=== PATIENT | female | born 1985 | race Caucasian/White ===

== ENCOUNTER 2016-07-19 03:19 | Inpatient (IN) ==
[2016-07-19 03:55] LABS: URINE SOURCE VOIDED
[2016-07-19] MEDS ORDERED: PEPCID PO PRN (03:55)
[2016-07-19] MEDS ORDERED: LR 1,000 ML IV SCH (03:55)
[2016-07-19] MEDS ORDERED: PEPCID IV PRN (03:55)
[2016-07-19] MEDS ORDERED: KEFZOL 1 GM/D5W 1 GM/50 ML IVPB IV PRN (03:55)
[2016-07-19] MEDS ORDERED: ZOFRAN IV PRN (03:55)
[2016-07-19] MEDS ORDERED: AMPICILLIN 2 GM/NS 2 GM/100 ML IVPB IV ONE (03:55)
[2016-07-19] MEDS ORDERED: REGLAN PO ONE (03:55)
[2016-07-19] MEDS ORDERED: LR 500 ML IV ONE (03:55)
[2016-07-19] MEDS ORDERED: TYLENOL PO PRN (03:55)
[2016-07-19] MEDS ORDERED: STADOL IV PRN (03:55)
[2016-07-19] MEDS ORDERED: PITOCIN 30 UNITS/LR 30 UNITS/500 ML IV.SOLN IV SCH (03:55)
[2016-07-19] MEDS ORDERED: PEPCID PO ONE (03:55)
[2016-07-19] MEDS ORDERED: SODIUM CHLORIDE 0.9% INJ SCH (04:00)
[2016-07-19 04:01] LABS: BILIRUBIN URINE NEGATIVE (NEGATIVE); BLOOD URINE 1+ (NEGATIVE); CLARITY CLEAR (CLEAR); COLOR YELLOW; GLUCOSE URINE NEGATIVE (NEGATIVE); LEUKOCYTES URINE 1+ (NEGATIVE); NITRITE URINE NEGATIVE (NEGATIVE); PROTEIN URINE NEGATIVE (NEGATIVE); SP GRAVITY URINE 1.015; UR AMPHETAMINES QUAL NONE DETECTED (NONE DETECT); UR BARBITUATES QUAL NONE DETECTED (NONE DETECT); UR BENZODIAZEPIN QUAL NONE DETECTED (NONE DETECT); UR CANNABINOIDS QUAL NONE DETECTED (NONE DETECT); UR COCAINE QUAL NONE DETECTED (NONE DETECT); UR MDMA QUAL NONE DETECTED (NONE DETECT); UR METHADONE QUAL NONE DETECTED (NONE DETECT); UR METHAMPHETAMINE QUAL PRESUMPTIVE POSITIVE (NONE DETECT); UR OPIATES QUAL NONE DETECTED (NONE DETECT); UR OXYCODONE QUAL NONE DETECTED (NONE DETECT); UR PCP QUAL NONE DETECTED (NONE DETECT); UR TCA QUAL NONE DETECTED (NONE DETECT); UROBILINOGEN URINE NORMAL
[2016-07-19] MEDS ORDERED: XYLOCAINE-MPF 1% ONE (04:35)
[2016-07-19 04:50] LABS: MANUAL DIFF NEEDED? NO
[2016-07-19 04:51] LABS: BASO% 0.2 % (0.0-0.8); EOS# 0.13 X1000 (0.0-0.7); EOS% 1.1 % (0.0-10.0); HEMATOCRIT 31.1 % (37.0-47.0); HEMOGLOBIN 10.5 g/dL (12.0-16.0); IMM GRAN# 0.12 X1000 (0.0-0.04); MCH 30.9 PG (27-31); MCHC 33.8 g/dL (33-37); MCV 91.5 FL (81-99); MONO# 1.07 X1000 (0.11-0.59); MONO% 8.6 % (1.7-9.3); MPV 10.9 FL (7.4-10.4); NEUT% 68.1 % (42.2-75.2); PLT 223 X1000 (130-400)
[2016-07-19] MEDS ORDERED: PERCOCET-5 PO PRN (05:50)
[2016-07-19] MEDS ORDERED: PITOCIN 20 UNITS/LR 20 UNITS/1,000 ML IV.SOLN IV SCH (05:50)
[2016-07-19] MEDS ORDERED: HYDROXYZINE PO PRN (05:50)
[2016-07-19] MEDS ORDERED: XYLOCAINE-MPF 1% INJ PRN (05:50)
[2016-07-19] MEDS ORDERED: PITOCIN 30 UNITS/LR 30 UNITS/500 ML IV.SOLN IV ONE (05:50)
[2016-07-19] MEDS ORDERED: BOOSTRIX VACCINE IM ONE (05:50)
[2016-07-19] MEDS ORDERED: BENADRYL IV PRN (05:50)
[2016-07-19] MEDS ORDERED: MINERAL OIL PO PRN (05:50)
[2016-07-19] MEDS ORDERED: HYDROXYZINE IM PRN (05:50)
[2016-07-19] MEDS ORDERED: PERI MEDS (DERMOPLAST/NUPERCAINAL/TUCKS) MISC PRN (05:50)
[2016-07-19] MEDS ORDERED: CYTOTEC PO PRN (05:50)
[2016-07-19] MEDS ORDERED: AMBIEN PO PRN (05:50)
[2016-07-19] MEDS ORDERED: PITOCIN IM PRN (05:50)
[2016-07-19] MEDS ORDERED: BENADRYL PO PRN (05:50)
[2016-07-19] MEDS: PERCOCET-10 PO PRN ×3 (07:12→20:47)
[2016-07-19] MEDS: MOTRIN PO PRN ×2 (07:12→20:46)
[2016-07-19] MEDS ORDERED: AMPICILLIN 1 GM/NS 1 GM/50 ML IVPB IV SCH (07:55)
[2016-07-19] MEDS: PRECARE PO SCH (09:04)
[2016-07-19] MEDS: KLONOPIN PO SCH ×2 (09:04→20:46)
[2016-07-19] MEDS ORDERED: PERICOLACE PO SCH (21:00)
[2016-07-19] MEDS ORDERED: PNEUMOVAX 23 IM ONE (22:00)
[2016-07-20] MEDS: PERCOCET-10 PO PRN ×2 (03:49→07:55)
[2016-07-20] MEDS: MOTRIN PO PRN (07:55)
[2016-07-20 08:04] LABS: MANUAL DIFF NEEDED? NO
[2016-07-20 08:24] VITALS: BP 127/63
[2016-07-20 08:43] LABS: BASO% 0.3 % (0.0-0.8); EOS# 0.14 X1000 (0.0-0.7); HEMOGLOBIN 9.1 g/dL (12.0-16.0); IMM GRAN# 0.09 X1000 (0.0-0.04); IMM GRAN% 0.7 % (0.0-0.5); LYMPH# 2.74 X1000 (1.2-3.4); LYMPH% 20.5 % (20.5-51.1); MCH 31.2 PG (27-31); MCHC 33.7 g/dL (33-37); MCV 92.5 FL (81-99); MONO# 0.73 X1000 (0.11-0.59); MONO% 5.5 % (1.7-9.3); MPV 11.4 FL (7.4-10.4); PLT 231 X1000 (130-400); RBC 2.92 XMIL (4.2-5.4)
[2016-07-20] MEDS: PRECARE PO SCH (08:45)
[2016-07-20] MEDS: KLONOPIN PO SCH (08:45)
--- NOTE | 2016-07-20 13:43 | OPERATIVE NOTE ---
PROCEDURE DATE: 07/19/2016 ADMISSION DIAGNOSIS: A 31-year-old, 5, para 2-0-2-2, at 37 weeks 2 day , admitted in active labor, status post spontaneous rupture of membranes, insufficient care, drug abuse, h/o incarceration this PROCEDURES: Spontaneous vaginal delivery. DELIVERING PHYSICIAN: Dr. Elizabeth Gold. ANESTHESIA: None. COMPLICATIONS: None. DELIVERY SUMMARY: This 31-year-old, G-5, P-2-0-2-2, at 37 weeks 2 day underwent active labor and subsequent uncomplicated spontaneous vaginal delivery of a female weighing 6 pounds 6 ounces, Apgars 8 and 9. Baby was delivered atraumatically, bulb suctioned at delivery. Nuchal cord x2 was noted and reduced. Cord was clamped and cut, and baby was placed on mother's abdomen with the Pediatric team in attendance. The placenta was delivered intact, showing a 3-vessel cord. No lacerations were noted. Patient and baby were stable in the delivery room. cc: Elizabeth Gold MD [facility]
--- NOTE | 2016-07-20 13:58 | OB/GYN PROGRESS NOTE ---
Progress Note OB - . OB Progress Note: Vital Signs - 24 hr 07/19/16 14:35 07/19/16 20:33 07/19/16 23:52 Temperature 98.2 F 96.2 F L 97.8 F Pulse Rate 90 80 85 Respiratory Rate 18 18 18 Blood Pressure 156/86 132/93 O2 Sat by Pulse Oximetry 97 99 98 07/20/16 07:50 Temperature 97.0 F L Pulse Rate 107 H Respiratory Rate 18 Blood Pressure 127/63 O2 Sat by Pulse Oximetry 97 Laboratory Results - last 24 hr 07/20/16 05:15 WBC 13.38 H RBC 2.92 L Hgb 9.1 L Hct 27.0 L MCV 92.5 MCH 31.2 H MCHC 33.7 RDW Std Deviation 13.2 Plt Count 231 MPV 11.4 H Immature Gran % (Auto) 0.7 H Neut % (Auto) 72.0 Lymph % (Auto) 20.5 [place] % (Auto) 5.5 Eos % (Auto) 1.0 Baso % (Auto) 0.3 Immature Gran # (Auto) 0.09 H Neut # (Auto) 9.64 H Lymph # (Auto) 2.74 [place] # (Auto) 0.73 H Eos # (Auto) 0.14 Baso # (Auto) 0.04 Notified by nurse patient left AWOL. -to discharge patient per protocol Elizabeth Gold MD SMT OPERATOR
--- NOTE | 2016-08-21 13:07 | DISCHARGE SUMMARY ---
ADMISSION DATE: 07/19/2016 DISCHARGE DATE: 07/20/2016 PROCEDURE: Spontaneous vaginal delivery. DELIVERING PHYSICIAN: Dr. Elizabeth Gold. PROCEDURE DATE: 07/19/2016. ADMISSION DIAGNOSIS: A 31-year-old, G5, P2-0-2-2 at 37 weeks and 2 days admitted in active labor status post spontaneous ruptured membranes, insufficient care, drug abuse, history of incarceration this . HOSPITAL COURSE: This 31-year-old G5, P2-0-2-2 at 37 weeks and 2 days admitted in active labor status post spontaneous rupture of membranes, underwent an uncomplicated spontaneous vaginal delivery. The patient's course was unremarkable; however, the patient did not have a complete evaluation or official discharge because the patient left AWOL. The patient was discharged based upon L&D protocol for AWOL patients. cc: Elizabeth Gold MD MTD
== END 2016-07-20 13:22 | disposition left against medical advice (07) ==
LOC: P.OPLD 03:19 → P.LD 03:26 → P.NUR 05:12 → P.LD 08:22
PROVIDERS: ADMIT Student in an Organized Health Care Education/Training Program; ATTEND Student in an Organized Health Care Education/Training Program